=== PATIENT | female | born 1985 | race Caucasian/White ===

== ENCOUNTER 2020-01-08 12:19 | Outpatient (CLI) | payer OTHER, SELFPAY ==
[2020-01-08 14:16] LABS: Vitamin D 25 Hydroxy 40.2 ng/mL
== END 2020-01-08 12:20 | disposition home or self-care (01) ==
PROVIDERS: PCP Family Medicine; Visit Provider Nurse Practitioner
DX: E55.9 Vitamin D deficiency, unspecified (principal)
CPT/HCPCS: 36415; 82306

== ENCOUNTER 2020-10-07 08:46 | Outpatient (CLI) | payer OTHER, SELFPAY ==
[2020-10-07 08:59] LABS: Basophils Absolute Auto 0.03 K/mm3 (0.00-0.10); Basophils Percent Auto 0.5 % (0.0-1.0); Eosinophils Absolute Auto 0.08 K/mm3 (0.02-0.50); Eosinophils Percent Auto 1.2 % (1.0-6.0); Hematocrit 43.8 % (35.0-49.0); Hemoglobin 14.5 g/dL (12.0-15.0); Immature Granulocyte Absolute 0.02 K/mm3 (0.00-0.00); Immature Granulocyte Percent A 0.3 % (0.0-0.0); Lymphocytes Absolute Auto 2.27 K/mm3 (1.10-4.50); Lymphocytes Percent Auto 34.6 % (18.0-42.0); Mean Corpuscular HGB Conc 33.1 g/dL (32.0-36.0); Mean Corpuscular Hemoglobin 28.7 pg (27.0-31.0); Mean Corpuscular Volume 86.7 fL (78.0-102.0); Mean Platelet Volume 10.6 fl (9.2-11.8); Monocytes Absolute Auto 0.51 K/mm3 (0.10-0.90); Monocytes Percent Auto 7.8 % (2.0-11.0); Neutrophils Absolute Auto 3.7 K/mm3 (1.7-7.2); Neutrophils Percent Auto 55.6 % (50.0-70.0); Platelet Count Result 290 K/mm3 (150-420); Red Blood Count 5.05 M/mm3 (4.20-5.40); Red Cell Distribution Width 12.3 % (11.6-14.4); White Blood Count 6.6 K/mm3 (4.8-10.8)
[2020-10-07 09:18] LABS: Hemoglobin A1C 5.1 % (<5.7)
[2020-10-07 10:25] LABS: Alanine Aminotransferase 13 U/L (14-59); Albumin Level 3.8 g/dL (3.4-5.0); Alkaline Phosphatase 64 U/L (46-116); Anion Gap 11 mmol/L (8-16); Aspartate Amino Transferase 22 U/L (15-37); Bilirubin,Total 0.6 mg/dL (0.00-1.00); Blood Urea Nitrogen 15 mg/dL (7-18); Calcium 8.2 mg/dL (8.5-10.1); Carbon Dioxide 26 mmol/L (21-32); Chloride 103 mmol/L (98-108); Cholesterol 191 mg/dL (0-200); Estimated Glomerular Filt Rate > 60; Free T4 Free Thyroxine 0.92 ng/dL (0.76-1.46); Glucose 90 mg/dL (70-99); HDL Direct 41 mg/dL (40-60); LDL Cholesterol Calculated 124 mg/dL (<130); Osmolality Calculated 290 mOsm/kg (285-295); Potassium 4.1 mmol/L (3.5-5.1); Sodium 140 mmol/L (136-145); Thyroid Stimulating Hormone 2.26 uIU/mL (0.36-3.74); Triglycerides 128 mg/dL (0-150); Vitamin B12 373 pg/mL (193-986)
[2020-10-09 21:24] LABS: Vitamin D 25 Hydroxy 17 ng/mL (30-100)
== END 2020-10-07 08:47 | disposition home or self-care (01) ==
PROVIDERS: PCP Family Medicine; Visit Provider Nurse Practitioner
DX: Z13.89 Encounter for screening for other disorder (principal); Z00.00 Encounter for general adult medical examination without abnormal findings; E55.9 Vitamin D deficiency, unspecified
CPT/HCPCS: 36415; 80053; 80061; 82306; 82607; 83036; 84439; 84443; 85025

== ENCOUNTER 2021-06-12 11:59 | Emergency (ER) | payer OTHER, SELFPAY ==
[2021-06-12 12:05] VITALS: BP 135/85; PULSE 86; RESP 16; TEMP 36.8; O2SAT 100
--- NOTE | 2021-06-12 12:06 | ED.SKABFB ---
HPI - Skin/Abscess/Foreign Bdy General Chief complaint: Skin/Abscess/Foreign Body Stated complaint: scratch on nose Time Seen by Provider: 06/12/21 12:06 Source: patient, RN notes reviewed and old records reviewed Mode of arrival: ambulatory History of Present Illness HPI narrative: 35-year-old female presents to the [facility] with a scratch to her right nostril since yesterday. Has redness and inflammation along with a swollen lymph node to the right side. Related Data Home Medications Medication Instructions Recorded Confirmed cholecalciferol (vitamin D3) 1,250 1,250 mcg PO WEEKLY 12/13/19 06/12/21 mcg (50,000 unit) tablet multivitamin [Daily Multivitamin] 1 tablet PO DAILY 06/12/21 06/12/21 Allergies Allergy/AdvReac Type Severity Reaction Status Date / Time azithromycin Allergy Unknown hives Verified 06/12/21 12:05 cephalexin Allergy Unknown Skin Verified 06/12/21 12:05 Reaction levofloxacin Allergy Unknown arm turned Verified 06/12/21 12:05 red CEPHALEXIN MONOHYDRATE Allergy Unknown HIVES Uncoded 06/12/21 12:05 Review of Systems Review of Systems: All systems reviewed & are unremarkable except as noted in HPI and below Constitutional: Constitutional: Reports no additional constitutional complaints, Denies chills and Denies fever(s) Eyes: Eyes: Reports no additional eye complaints and Denies change in vision ENT: Reports as per HPI Comments: Redness right septal wall right nostril Cardiovascular: Cardiovascular: Reports no additional cardiovascular complaints, Denies chest pain and Denies radiating jaw, neck or arm pain Respiratory: Respiratory: Reports no additional respiratory complaints, Denies chest congestion, Denies cough, Denies dyspnea and Denies wheezing Gastrointestinal: Gastrointestinal: Reports no additional gastrointestinal complaints, Denies abdominal pain, Denies constipation, Denies diarrhea, Denies nausea and Denies vomiting Musculoskeletal: Musculoskeletal: Reports no additional musculoskeletal complaints and Denies back pain Neurologic: Reports system reviewed and no additional complaints, except as documented Psychiatric: Psychiatric: Reports no additional psychiatric complaints Allergic/Immunologic: Allergic/Immunologic: Reports no additional allergic/immunologic complaints PMFSH Social History Social History Smoking status: Never smoker Comments At the time of my signature, I reviewed and agree with the nursing past medical, surgical, social, and family history. There is no relevant family history pertinent to the patient complaint. Exam Const: General: healthy appearing, no acute distress and alert Nutritional Appearance: well nourished and obese Orientation/consciousness: patient oriented x3 Limitations: no limitations HENMT: Head: normal to inspection General nose exam: Abnormal nasal septum present other (Redness, inflammation, ); not deviated, no septal hematoma and not perforated, no nasal discharge noted and no foreign body in nares Face and sinus: normal facial exam Mouth: Yes Normal oral and palatal mucosa present and Yes lip normal Throat: posterior oropharynx normal and uvula midline Eyes: Pupils: Equal, round and reactive pupils present Neck: Neck: normal visual inspection and lymphadenopathy right submandibular soft and tender; not warm Chest: Chest palpation & inspection: normal inspection of the chest Resp: Effort & Inspection: normal respiratory effort Auscultation: clear to auscultation bilaterally Cardio: Rate: regular rate Rhythm: regular rhythm GI: GI Palp: Yes Soft to palpation and No Tenderness to palpation present (GI) Back/Spine/Pelvis: Back: no CVA tenderness Skin: General skin exam: normal color Rashes: no rashes Wounds: no wounds Neuro: General: patient oriented x3, moves all extremities, no meningeal signs and no focal motor deficits Speech: normal speech Gait exam (Neuro):
[2021-06-12 12:09] VITALS: BP 135/85; PULSE 86; RESP 16; TEMP 36.8; O2SAT 100
== END 2021-06-12 12:20 | disposition home or self-care (01) ==
PROVIDERS: Emergency Provider Nurse Practitioner; PCP Family Medicine
DX: S00.31XA Abrasion of nose, initial encounter (principal); X58.XXXA Exposure to other specified factors, initial encounter
CPT/HCPCS: 99213; G0463

== ENCOUNTER 2021-08-26 08:27 | Emergency (ER) | payer OTHER, SELFPAY ==
[2021-08-26] VITALS (19 sets, daily range): BP systolic 105–138; BP diastolic 80–93; PULSE 60–118; RESP 14–24; TEMP 36.7; O2SAT 95–98
--- NOTE | ~2021-08-26 | XR_ITS ---
XR chest 2V DATE: 08/26/2021 08:56 INDICATION: Left-sided chest pain since last night. TECHNIQUE: PA and lateral views COMPARISON: 04/09/2011 portable AP chest at 0830 hours FINDINGS: Normal heart size. No hilar or mediastinal enlargement. No pulmonary infiltrate or consolid ation, pleural effusion or pulmonary vascular congestion or pneumothorax. Status post cholecystectomy IMPRESSION: No active cardiopulmonary disease Reviewed, dictated and finalized at location A. ET INSPECTOR FINISHED
--- NOTE | 2021-08-26 08:47 | ECG_ITS ---
Measurements Intervals [place] Rate: 83 P: 23 CO: 167 QRS: 7 QRSD: 93 T: 9 QT: 369 QTc: 435 Interpretive Statements SINUS RHYTHM DELAYED PRECORDIAL R/S TRANSITION CONSIDER INFERIOR INFARCT, AGE INDETERMINATE BORDERLINE ST ABNORMALITY- HIGH LATERAL LEADS ABNORMAL ECG Electronically Signed On 08-26-2021 9:17:32 DONOR SERVICES TECHNICIAN by Tommy Sullivan D.O.
[2021-08-26 08:55] LABS: Basophils Percent Auto 0.4 % (0.2-1.2); Eosinophils Absolute Auto 0.1 K/mm3 (0-0.3); Eosinophils Percent Auto 0.9 % (0-4.4); Hematocrit 42.9 % (37.0-47.0); Hemoglobin 14.7 g/dL (12.0-15.0); Immature Granulocyte Absolute 0.01 K/mm3 (0.00-0.031); Immature Granulocyte Percent A 0.2 % (0-0.5); Lymphocytes Absolute Auto 1.49 K/mm3 (0.9-3.2); Lymphocytes Percent Auto 28.1 % (18.3-44.2); Mean Corpuscular HGB Conc 34.3 g/dl (32-36); Mean Corpuscular Hemoglobin 29.4 pg (26-34); Mean Corpuscular Volume 85.8 fl (80-100); Mean Platelet Volume 10.3 fl (7.4-10.4); Monocytes Absolute Auto 0.4 K/mm3 (0.1-0.6); Monocytes Percent Auto 7.7 % (2.6-8.5); Neutrophils Absolute Auto 3.3 K/mm3 (1.3-6.7); Neutrophils Percent Auto 62.7 % (45.5-73.1); Platelet Count Result 307 k/mm3 (150-375); Red Cell Distribution Width 12.9 % (11.5-14.5); White Blood Count 5.3 K/mm3 (4.5-10.0)
[2021-08-26 09:04] LABS: INR 0.9; Partial Thromboplastin Time 26.9 SECONDS (22.3-36.8); Prothrombin Time 12.5 Seconds (11.1-14.7)
[2021-08-26 09:10] LABS: Alanine Aminotransferase 51 U/L (4-35); Albumin Level 4.5 g/dL (3.5-5.1); Alkaline Phosphatase 67 U/L (38-126); Anion Gap 12 mmol/L (8-16); Aspartate Amino Transferase 48 U/L (14-36); Bilirubin,Total 0.8 mg/dL (0.2-1.3); Blood Urea Nitrogen 12 mg/dL (7-17); Calcium 9.5 mg/dL (8.4-10.2); Carbon Dioxide 23 mmol/L (22-30); Chloride 102 mmol/L (98-107); Estimated CRCL calculation 79 ml/min; Estimated Glomerular Filt Rate > 60; Glucose 109 mg/dL (65-110); Lipase 67 U/L (23-300); Potassium 3.8 mmol/L (3.4-5.0); Sodium 137 mmol/L (137-145)
[2021-08-26 09:21] LABS: Troponin I < 0.012 ng/mL (0.000-0.034)
--- NOTE | 2021-08-26 10:06 | ED.CHESTPAIN ---
HPI - Chest Pain General Chief Complaint: Chest Pain Stated Complaint: chest pain Time Seen by Provider: 08/26/21 09:44 Source: patient Mode of arrival: ambulatory Limitations: no limitations History of Present Illness HPI narrative: Patient is a 35-year-old female presenting with chief complaint of left midsternal chest pain that began at 2100 last night. Patient reports it is an alternation and achy pain sharp pains that are intermittent. Patient denies any exacerbation or alleviating factors. Patient denies any dizziness, syncope, palpitations, shortness of breath, nausea or vomiting accompanying the discomfort. Patient denies history of MN or other cardiac abnormalities. Patient reports that she has a history of GERD and originally attributed her symptoms to eat but despite taking Tums and Pepcid her symptoms continue to return. 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 Patient reports recently beginning Prozac for anxiety. Patient reports that her anxiety does not typically present as chest pain, no more continuous racing thoughts. Patient denies having a history of hypertension, diabetes or any other chronic medical conditions besides anxiety. Patient denies intermediate family member with heart attack. Patient reports that her father did have a CABG performed in his 60s. She denies chance of due to presently active menstrual cycle. Related Data Home Medications Medication Instructions Recorded Confirmed cholecalciferol (vitamin D3) 1,250 1,250 mcg PO WEEKLY 12/13/19 08/22/21 mcg (50,000 unit) tablet multivitamin [Daily Multivitamin] 1 tablet PO DAILY 06/12/21 08/22/21 Allergies Allergy/AdvReac Type Severity Reaction Status Date / Time azithromycin Allergy Unknown hives Verified 08/22/21 09:52 cephalexin Allergy Unknown Skin Verified 08/22/21 09:52 Reaction levofloxacin Allergy Unknown arm turned Verified 08/22/21 09:52 red CEPHALEXIN MONOHYDRATE Allergy Unknown HIVES Uncoded 08/22/21 09:52 Review of Systems Review of Systems: CONSTITUTIONAL: Denies fever, chills, or sweats. EYES: Denies visual changes, redness, or discharge. ENT: Denies rhinorrhea, congestion, sore throat, or otalgia. CARDIOVASCULAR: Reports intermittent denies chest pain, palpitations, or edema. RESPIRATORY: Denies cough or dyspnea. GASTROINTESTINAL: Denies abdominal pain, nausea, vomiting, or diarrhea. GENITOURINARY: Denies dysuria or hematuria. SKIN: Denies rash or itching. MUSCULOSKELETAL: Denies back pain, joint pain, or myalgia. NEUROLOGIC: Denies headache, numbness, dizziness, or weakness. PSYCHIATRIC: Denies anxiety or depression. Exam Narrative: GENERAL: Well-appearing, well-nourished, and in no acute distress. Not diaphoretic. HEAD: Normocephalic, atraumatic. EYES: PERRLA and EOMI. CHEST: Chest pain that represented with chest wall palpation. Clear to auscultation. No respiratory distress. No wheezes rales or rhonchi. No outward signs of trauma. HEART: Regular rate and rhythm. No murmur heard. Normal peripheral pulses. EXTREMITIES: Normal range of motion. No edema. SKIN: Warm, dry, no rash. NEURO: No focal deficits. Alert and oriented x3. PSYCH: Normal mood and affect. Course Vital Signs Vital signs: Vital Signs Temperature 98.0 F 08/26/21 08:32 Pulse Rate 118 H 08/26/21 08:32 Respiratory Rate 18 08/26/21 08:32 Blood Pressure 138/92 H 08/26/21 08:32 Pulse Oximetry 98 08/26/21 08:32 Temperature 98.0 F 08/26/21 08:32 Pulse Rate 60 08/26/21 12:31 Respiratory Rate 17 08/26/21 12:31 Blood Pressure 134/85 08/26/21 10:31 Pulse Oximetry 98 08/26/21 11:16 MDM - Chest Pain MDM Narrative Medical decision making narrative: Patient discharge delay due to multiple lab issues running troponin on blood samples requiring redraws, Patient has had 2 negative
[2021-08-26] MEDS: ASPIRIN 81 MG CHEWABLE TABLET 324 MG PO (10:17)
--- NOTE | 2021-08-26 10:23 | PC.NURSE ---
one 81mg aspirin dropped on the floor. wasted and retrieved another out of pyxis
--- NOTE | 2021-08-26 14:22 | ECG_ITS ---
Measurements Intervals [place] Rate: 62 P: 21 IA: 178 QRS: 9 QRSD: 95 T: 14 QT: 400 QTc: 407 Interpretive Statements SINUS RHYTHM BASELINE ARTIFACT- II, III, AVF NORMAL ECG Electronically Signed On 08-26-2021 18:13:34 MDS COORDINATOR by Tommy Sullivan D.O.
[2021-08-26 15:26] LABS: Troponin I < 0.012 ng/mL (0.000-0.034)
== END 2021-08-26 15:44 | disposition home or self-care (01) ==
PROVIDERS: Emergency Provider Emergency Medicine; PCP Family Medicine
DX: R07.2 Precordial pain (principal); F41.9 Anxiety disorder, unspecified; K21.9 Gastro-esophageal reflux disease without esophagitis; R94.31 Abnormal electrocardiogram [ECG] [EKG]
CPT/HCPCS: 36415; 71046; 80053; 83690; 84484; 85025; 85610; 85730; 93005; 99284; A9270

== ENCOUNTER 2021-11-25 07:09 | Outpatient (CLI) | payer OTHER, SELFPAY ==
[2021-11-25 08:39] LABS: Basophils Percent Auto 0.4 % (0.2-1.2); Eosinophils Absolute Auto 0.1 K/mm3 (0-0.3); Eosinophils Percent Auto 1.6 % (0-4.4); Hemoglobin 14.6 g/dL (12.0-15.0); Immature Granulocyte Absolute 0.01 K/mm3 (0.00-0.031); Immature Granulocyte Percent A 0.1 % (0-0.5); Lymphocytes Absolute Auto 2.33 K/mm3 (0.9-3.2); Lymphocytes Percent Auto 34.3 % (18.3-44.2); Mean Corpuscular Hemoglobin 29.6 pg (26-34); Mean Corpuscular Volume 87.2 fl (80-100); Mean Platelet Volume 10.6 fl (7.4-10.4); Monocytes Absolute Auto 0.5 K/mm3 (0.1-0.6); Monocytes Percent Auto 6.8 % (2.6-8.5); Neutrophils Absolute Auto 3.9 K/mm3 (1.3-6.7); Neutrophils Percent Auto 56.8 % (45.5-73.1); Platelet Count Result 323 k/mm3 (150-375); Red Blood Count 4.93 M/mm3 (4.2-5.4); Red Cell Distribution Width 12.6 % (11.5-14.5); White Blood Count 6.8 K/mm3 (4.5-10.0)
[2021-11-25 09:19] LABS: Vitamin D 25 Hydroxy 35.7 ng/mL
[2021-11-25 09:42] LABS: Alanine Aminotransferase 27 U/L (4-35); Albumin Level 4.3 g/dL (3.5-5.1); Alkaline Phosphatase 71 U/L (38-126); Anion Gap 10 mmol/L (8-16); Aspartate Amino Transferase 24 U/L (14-36); Bilirubin,Total 0.5 mg/dL (0.2-1.3); Blood Urea Nitrogen 13 mg/dL (7-17); Calcium 8.2 mg/dL (8.4-10.2); Carbon Dioxide 23 mmol/L (22-30); Chloride 105 mmol/L (98-107); Cholesterol 204 mg/dL (0-200); Estimated Glomerular Filt Rate > 60; Glucose 93 mg/dL (65-110); HDL Direct 41 mg/dL; Potassium 3.6 mmol/L (3.4-5.0); Sodium 138 mmol/L (137-145); Triglycerides 176 mg/dL (<150)
[2021-11-25 09:54] LABS: LDL Cholesterol Direct 126 mg/dL
[2021-11-25 10:48] LABS: Folic Acid > 20.0 ng/mL (2.76->20)
== END 2021-11-25 07:10 | disposition home or self-care (01) ==
PROVIDERS: PCP Family Medicine; Visit Provider Physician Assistant
DX: E55.9 Vitamin D deficiency, unspecified (principal); E53.8 Deficiency of other specified B group vitamins; Z51.81 Encounter for therapeutic drug level monitoring; Z79.899 Other long term (current) drug therapy
CPT/HCPCS: 36415; 80053; 80061; 82306; 82607; 82746; 84443; 85025

== ENCOUNTER 2022-03-30 13:50 | Outpatient (CLI) | payer OTHER, SELFPAY | END 2022-03-30 13:51 | disposition home or self-care (01) | LOC: CHSLAB 13:54 | PROVIDERS: PCP Physician Assistant; Visit Provider Obstetrics & Gynecology Gynecology | DX: O26.21 Pregnancy care for patient with recurrent pregnancy loss, first trimester (principal) | CPT/HCPCS: 36415; 84702 ==

== ENCOUNTER 2022-04-01 13:48 | Outpatient (CLI) | payer OTHER, SELFPAY | END 2022-04-01 13:49 | disposition home or self-care (01) | PROVIDERS: PCP Physician Assistant; Visit Provider Obstetrics & Gynecology Gynecology | DX: O26.21 Pregnancy care for patient with recurrent pregnancy loss, first trimester (principal) | CPT/HCPCS: 36415; 84702 ==

== ENCOUNTER 2022-04-07 08:00 | Outpatient (CLI) | payer OTHER, SELFPAY ==
--- NOTE | ~2022-04-07 | US_ITS ---
EXAMINATION: US OB <=14 wk fetus w TV DATE: 04/07/2022 09:41 INDICATION: Assess viability of during first trimester TECHNIQUE: Real-time pelvic ultrasound utilizing both a transvaginal and transabdominal probe was pe rformed. The interpreting radiologist was not present for the study. COMPARISON: None. FINDINGS: The uterus measures 8.2 x 6.9 x 5.1 cm. There is an intrauterine gestational sac.A yolk sac is ident ified but there is no discernible pole. The mean sac diameter measures 9 mm, which correlates w ith an estimated gestational age of 5 weeks and 5 days. The right ovary measures 2.8 x 1.6 x 2.8 cm. The left ovary measures 3.6 x 2.7 x 2.0 cm. On color Dop pler vascular flow is seen around a 1.2 cm centrally anechoic thick-walled corpus luteum cyst in the left ovary. There is no free fluid in the pelvis. IMPRESSION: 1. Single intrauterine gestational sac with yolk sac but no discernible pole yet evident likely due to early stage of . 2. Gestational age by ultrasound of 5 weeks 5 day(s) +/- 4 day(s) with ultrasound estimated date of delivery (REGAN) of 12/03/2022. Reviewed, dictated and finalized at location A. IMPRESSION: 1. Single intrauterine gestational sac with yolk sac but no discernible p ole yet evident likely due to early stage of . 2. Gestational age by ultrasound of 5 weeks 5 day(s) +/- 4 day(s) with ultraso und estimated date of delivery (REGAN) of 12/03/2022.
== END 2022-04-07 08:01 | disposition home or self-care (01) ==
PROVIDERS: PCP Physician Assistant; Visit Provider Obstetrics & Gynecology Gynecology
DX: O36.80X0 Pregnancy with inconclusive fetal viability, not applicable or unspecified (principal); Z3A.01 Less than 8 weeks gestation of pregnancy
CPT/HCPCS: 76801; 76817

== ENCOUNTER 2022-04-16 12:41 | Outpatient (CLI) | payer OTHER, SELFPAY ==
--- NOTE | ~2022-04-16 | US_ITS ---
EXAMINATION: US OB <= 14 weeks fetus DATE: 04/16/2022 13:41 INDICATION: Assess viability during first trimester . TECHNIQUE: Real-time pelvic ultrasound utilizing both a transvaginal and transabdominal probe was pe rformed. The interpreting radiologist was not present for the study. COMPARISON: 04/07/2022 FINDINGS: The uterus measures 10.0 x 5.6 x 6.6 cm. There is an intrauterine gestational sac. A yolk sac and fe danni pole are identified. The crown rump length measures 8 mm, which correlates with an estimated gest ational age of 6 weeks and 5 days. heart motion is identified measuring 139 beats per minute (b pm) by M-mode Doppler. The right ovary measures 2.4 x 1.6 x 2.6 cm. The left ovary measures 2.9 x 2.3 x 2.1 cm. 10 mm anecho ic likely corpus luteum cyst in the left ovary. Vascular flow identified in both ovaries on color Dop pler. There is no free fluid in the pelvis. IMPRESSION: 1. Single living fetus with heart rate of 139 bpm. 2. Gestational age by ultrasound of 6 weeks 5 day(s) +/- 4 day(s) with ultrasound estimated date of delivery (REGAN) of 12/05/2022. Reviewed, dictated and finalized at location A. IMPRESSION: 1. Single living fetus with heart rate of 139 bpm. 2. Gestational age by ultrasound of 6 weeks 5 day(s) +/- 4 day(s) with ultraso und estimated date of delivery (REGAN) of 12/05/2022.
== END 2022-04-16 12:42 | disposition home or self-care (01) ==
LOC: ANHIMG 12:43
PROVIDERS: PCP Physician Assistant; Visit Provider Obstetrics & Gynecology Gynecology
DX: O36.80X0 Pregnancy with inconclusive fetal viability, not applicable or unspecified (principal); Z3A.01 Less than 8 weeks gestation of pregnancy
CPT/HCPCS: 76801

== ENCOUNTER 2022-05-07 12:41 | Outpatient (CLI) | payer OTHER, SELFPAY ==
[2022-05-07 13:09] LABS: Hematocrit 41.4 % (37.0-47.0); Hemoglobin 13.8 g/dL (12.0-15.0); Mean Corpuscular HGB Conc 33.3 g/dl (32-36); Mean Corpuscular Hemoglobin 28.8 pg (26-34); Mean Corpuscular Volume 86.4 fl (80-100); Mean Platelet Volume 10.4 fl (7.4-10.4); Platelet Count Result 325 k/mm3 (150-375); Red Blood Count 4.79 M/mm3 (4.2-5.4); Red Cell Distribution Width 13.1 % (11.5-14.5); White Blood Count 9.7 K/mm3 (4.5-10.0)
[2022-05-07 13:18] LABS: Alanine Aminotransferase 33 U/L (6-35); Albumin Level 4.4 g/dL (3.5-5.1); Alkaline Phosphatase 53 U/L (38-126); Anion Gap 13 mmol/L (8-16); Aspartate Amino Transferase 23 U/L (14-36); Bilirubin,Total 0.4 mg/dL (0.2-1.3); Blood Urea Nitrogen 11 mg/dL (7-17); Calcium 8.8 mg/dL (8.4-10.2); Carbon Dioxide 22 mmol/L (22-30); Chloride 102 mmol/L (98-107); Estimated Glomerular Filt Rate > 60; Glucose 76 mg/dL (65-110); Potassium 3.6 mmol/L (3.4-5.0); Sodium 137 mmol/L (137-145); Uric Acid 3.5 mg/dL (2.5-7.5)
== END 2022-05-07 12:42 | disposition home or self-care (01) ==
LOC: ANHLAB 12:42
PROVIDERS: PCP Physician Assistant; Visit Provider Obstetrics & Gynecology Gynecology
DX: Z86.32 Personal history of gestational diabetes (principal)
CPT/HCPCS: 36415; 80053; 84550; 85027

== ENCOUNTER 2022-05-08 15:03 | Outpatient (CLI) | payer OTHER, SELFPAY ==
[2022-05-08 15:40] LABS: Collection Time Urine 24 HOURS
[2022-05-08 15:45] LABS: Total Volume 24 Hour Urine 1600 ml
[2022-05-08 15:50] LABS: Creatinine Clearance Urine 165.3 ml/min (75-125); Creatinine Urine 89.6 mg/dL; Patient Weight 170 Lbs
[2022-05-08 16:23] LABS: Total Protein Urine 24 Hr < 80 mg/24hr (28-141); Total Protein Urine Random < 5 mg/dL
== END 2022-05-08 15:04 | disposition home or self-care (01) ==
PROVIDERS: PCP Physician Assistant; Visit Provider Obstetrics & Gynecology Gynecology
DX: Z86.32 Personal history of gestational diabetes (principal)
CPT/HCPCS: 81050; 82575; 84156

== ENCOUNTER 2022-05-25 12:17 | Emergency (ER) | payer OTHER, SELFPAY ==
[2022-05-25 12:33] VITALS: BP 128/77; PULSE 108; RESP 20; TEMP 37.2; O2SAT 96
[2022-05-25 13:12] LABS: Basophils Absolute Auto 0.01 K/mm3 (0.00-0.10); Basophils Percent Auto 0.1 % (0.0-1.0); Hematocrit 36.9 % (35.0-49.0); Hemoglobin 12.4 g/dL (12.0-15.0); Immature Granulocyte Absolute 0.04 K/mm3 (0.00-0.00); Immature Granulocyte Percent A 0.4 % (0.0-0.0); Lymphocytes Absolute Auto 0.57 K/mm3 (1.10-4.50); Lymphocytes Percent Auto 5.9 % (18.0-42.0); Mean Corpuscular HGB Conc 33.6 g/dL (32.0-36.0); Mean Corpuscular Hemoglobin 29.1 pg (27.0-31.0); Mean Corpuscular Volume 86.6 fL (78.0-102.0); Monocytes Absolute Auto 0.55 K/mm3 (0.10-0.90); Monocytes Percent Auto 5.7 % (2.0-11.0); Neutrophils Absolute Auto 8.5 K/mm3 (1.7-7.2); Neutrophils Percent Auto 87.9 % (50.0-70.0); Platelet Count Result 262 K/mm3 (150-420); Red Blood Count 4.26 M/mm3 (4.20-5.40); Red Cell Distribution Width 13.1 % (11.6-14.4); White Blood Count 9.7 K/mm3 (4.8-10.8)
[2022-05-25] MEDS: SODIUM CHLORIDE 0.9% IV 1,000 ML 999 ML IV CONT (13:14)
[2022-05-25] MEDS: ACETAMINOPHEN 325 MG TABLET 650 MG PO (13:14)
--- NOTE | 2022-05-25 13:18 | PC.NURSE ---
Pt aware of UA order, but states that she does not need to go to the bathroom at this time. Pt will notify staff when she is able to provide a urine sample.
[2022-05-25] MEDS: ONDANSETRON INJ 4 MG/2 ML VIAL IV PUSH (13:26)
[2022-05-25 13:27] LABS: Alanine Aminotransferase 36 U/L (14-59); Alkaline Phosphatase 64 U/L (46-116); Anion Gap 9 mmol/L (8-16); Aspartate Amino Transferase 15 U/L (15-37); Bilirubin,Total 0.4 mg/dL (0.00-1.00); Blood Urea Nitrogen 4 mg/dL (7-18); Calcium 8.2 mg/dL (8.5-10.1); Carbon Dioxide 27 mmol/L (21-32); Chloride 97 mmol/L (98-108); Estimated CRCL calculation 104 ml/min; Estimated Glomerular Filt Rate > 60; Glucose 118 mg/dL (70-99); Osmolality Calculated 273 mOsm/kg (285-295); Potassium 3.1 mmol/L (3.5-5.1); Sodium 133 mmol/L (136-145); Total Protein 7.2 g/dL (6.4-8.2)
[2022-05-25 14:18] LABS: Appearance Urine Clear (Clear); Bilirubin Urine Negative (Negative); Color Urine Yellow (Yellow); Glucose Urine UA Negative (Negative); Ketones Urine 1+ (Negative); Leukocyte Esterase Ur Negative (Negative); Nitrate Urine Negative (Negative); Protein Urine Trace (Negative); Specific Grav Ur >= 1.030 (1.010-1.020)
[2022-05-25 14:23] LABS: Add Urine Microscopic? YES; Blood Urine Trace-Intact (Negative); RBC Urine 0-2 /hpf (0-2); Squamous Epithelial Cell Urine Few /hpf (Few); WBC Urine 0-3 /hpf (0-3)
[2022-05-25 14:24] LABS: Bacteria Urine Trace /hpf; Mucus Urine Moderate /lpf
[2022-05-25 14:50] VITALS: PULSE 87; RESP 16; O2SAT 96
--- NOTE | 2022-05-25 15:08 | ED.GENADULT ---
HPI - General Adult General Chief complaint: Unspecified Stated complaint: HIGH HEART RATE DEHYDRATED Time Seen by Provider: 05/25/22 12:21 Source: patient, family and RN notes reviewed Mode of arrival: ambulatory Limitations: no limitations History of Present Illness Onset (ago): day(s) (2) Location: abdomen Radiation: non-radiation Severity: similar to prior episodes (no acute pain) Pain Consistency: other (none) Relieving factors: none Exacerbating factors: none Associated symptoms: loss of appetite and nausea/vomiting Treatments prior to arrival: none Related Data Home Medications Medication Instructions Recorded Confirmed [place] 1 tablet 05/25/22 aspirin 81 mg DAILY 05/25/22 05/25/22 insulin syringe-needle U-100 0.3 05/25/22 05/25/22 mL 31 gauge x 12/22 prenat.vits,yashira,[id number] 1 tablet PO DAILY 05/25/22 05/25/22 Allergies Allergy/AdvReac Type Severity Reaction Status Date / Time azithromycin Allergy Unknown hives Verified 05/25/22 12:39 cephalexin Allergy Unknown Skin Verified 05/25/22 12:39 Reaction levofloxacin Allergy Unknown arm turned Verified 05/25/22 12:39 red Review of Systems Review of Systems: All systems reviewed & are unremarkable except as noted in HPI and below Constitutional: Constitutional: Reports no additional constitutional complaints Eyes: Eyes: Reports no additional eye complaints ENT: Reports system reviewed and no additional complaints, except as documented Cardiovascular: Cardiovascular: Reports no additional cardiovascular complaints Respiratory: Respiratory: Reports no additional respiratory complaints Gastrointestinal: Gastrointestinal: Reports no additional gastrointestinal complaints, Reports nausea and Reports vomiting Genitourinary: Genitourinary: Reports no additional female genitourinary complaints Musculoskeletal: Musculoskeletal: Reports no additional musculoskeletal complaints Integumentary/Breasts: Skin/Breast: Reports system reviewed and no additional complaints, except as docu Neurologic: Reports system reviewed and no additional complaints, except as documented Psychiatric: Psychiatric: Reports no additional psychiatric complaints Endocrine: Endocrine: Reports no additional endocrine complaints Hematologic/Lymphatic: Hematologic/Lymphatic: Reports no additional hematologic/lymphatic complaints Allergic/Immunologic: Allergic/Immunologic: Reports no additional allergic/immunologic complaints PMFSH Past Medical History Medical History Vomiting affecting Social History Social History Social History: Caffeine- <200mg daily Smoking status: Never smoker Alcohol intake: former Exam Const: General: healthy appearing, no acute distress and well nourished Nutritional Appearance: well nourished Orientation/consciousness: patient oriented x3 Limitations: no limitations HENMT: Head: normal to inspection Ears: external ears normal, TM's normal bilaterally and EAC's normal Face/Nose/Sinus: Normal external nose present, Normal nares present, normal facial exam and sinuses nontender Face and sinus: normal facial exam and sinuses nontender Mouth: Yes Normal oral and palatal mucosa present and Yes moist mucous membranes Teeth and gingiva: dentition normal Throat: posterior oropharynx normal Eyes: General: appearance normal, both eyes and all related structures Visual Mijares: normal visual mijares by confrontation Conjunctivae: conjunctivae normal Pupils: Equal, round and reactive pupils present EOM: EOMs intact bilaterally Neck: Neck: normal visual inspection, no lymphadenopathy and no meningeal signs Chest: Chest palpation & inspection: normal inspection of the chest Resp: Effort & Inspection: normal respiratory effort Auscultation: clear to auscultation bilaterally Cardio: Rate: regular rate Rhythm: re
[2022-05-25 15:10] VITALS: BP 106/72
[2022-05-25] MEDS: POTASSIUM CHLORIDE 20 MEQ TABLET 40 MEQ PO (15:16)
== END 2022-05-25 15:23 | disposition home or self-care (01) ==
PROVIDERS: Emergency Provider Emergency Medicine; PCP Physician Assistant
DX: K52.9 Noninfective gastroenteritis and colitis, unspecified (principal); Z33.1 Pregnant state, incidental; E87.6 Hypokalemia
CPT/HCPCS: 36415; 80053; 81001; 85025; 96361; 96374; 99284; A9270; J2405; J7030

== ENCOUNTER 2022-06-05 07:28 | Outpatient (CLI) | payer OTHER, SELFPAY ==
[2022-06-05 08:15] LABS: Basophils Percent Auto 0.1 % (0.2-1.2); Eosinophils Absolute Auto 0.1 K/mm3 (0-0.3); Eosinophils Percent Auto 0.7 % (0-4.4); Hematocrit 35.7 % (37.0-47.0); Hemoglobin 11.9 g/dL (12.0-15.0); Immature Granulocyte Absolute 0.04 K/mm3 (0.00-0.031); Immature Granulocyte Percent A 0.5 % (0-0.5); Lymphocytes Absolute Auto 2.18 K/mm3 (0.9-3.2); Lymphocytes Percent Auto 25.1 % (18.3-44.2); Mean Corpuscular HGB Conc 33.3 g/dl (32-36); Mean Corpuscular Hemoglobin 29.1 pg (26-34); Mean Corpuscular Volume 87.3 fl (80-100); Mean Platelet Volume 9.6 fl (7.4-10.4); Monocytes Absolute Auto 0.5 K/mm3 (0.1-0.6); Monocytes Percent Auto 5.3 % (2.6-8.5); Neutrophils Percent Auto 68.3 % (45.5-73.1); Platelet Count Result 356 k/mm3 (150-375); Red Blood Count 4.09 M/mm3 (4.2-5.4); Red Cell Distribution Width 13.2 % (11.5-14.5); White Blood Count 8.7 K/mm3 (4.5-10.0)
[2022-06-05 08:25] LABS: Hemoglobin A1C 5.5 % (<5.7)
[2022-06-05 09:10] LABS: HIV 1/2 Ab P24 Ag Result Negative (Negative)
[2022-06-05 09:46] LABS: Hepatitis B Surface Antigen Negative (Negative); Rubella IgG Antibody 8.1 IU/ML
[2022-06-05 09:47] LABS: Vitamin D 25 Hydroxy 33.4 ng/mL
[2022-06-05 10:02] LABS: Hepatitis C Virus Antibody Negative (Negative)
[2022-06-05 14:49] LABS: Rapid Plasma Reagin Non-Reactive (NonReactive)
== END 2022-06-05 07:29 | disposition home or self-care (01) ==
LOC: ANHLAB 07:30
PROVIDERS: PCP Family Medicine; Visit Provider Obstetrics & Gynecology Gynecology
DX: Z36.9 Encounter for antenatal screening, unspecified (principal)
CPT/HCPCS: 36415; 82306; 82728; 83036; 85025; 86592; 86703; 86762; 86803; 86850; 86900; 86901; 87340; G0432

== ENCOUNTER 2022-06-26 07:30 | Outpatient (CLI) | payer OTHER, SELFPAY ==
[2022-06-30 17:12] LABS: Ionized Calcium 4.7 mg/dL (4.8-5.6)
[2022-07-04 16:57] LABS: Parathyroid Hormone Related Pr 15 pg/mL (11-20)
== END 2022-06-26 07:31 | disposition home or self-care (01) ==
LOC: ANHLAB 07:32
PROVIDERS: PCP Family Medicine; Visit Provider Physician Assistant
DX: E83.51 Hypocalcemia (principal)
CPT/HCPCS: 36415; 82330; 83519

== ENCOUNTER 2022-07-10 07:41 | Outpatient (CLI) | payer OTHER, SELFPAY ==
[2022-07-10 07:55] LABS: Basophils Percent Auto 0.2 % (0.2-1.2); Eosinophils Absolute Auto 0.1 K/mm3 (0-0.3); Eosinophils Percent Auto 0.7 % (0-4.4); Hematocrit 34.7 % (37.0-47.0); Hemoglobin 11.6 g/dL (12.0-15.0); Immature Granulocyte Absolute 0.02 K/mm3 (0.00-0.031); Immature Granulocyte Percent A 0.2 % (0-0.5); Lymphocytes Absolute Auto 2.28 K/mm3 (0.9-3.2); Lymphocytes Percent Auto 26.9 % (18.3-44.2); Mean Corpuscular HGB Conc 33.4 g/dl (32-36); Mean Corpuscular Hemoglobin 28.8 pg (26-34); Mean Corpuscular Volume 86.1 fl (80-100); Mean Platelet Volume 9.8 fl (7.4-10.4); Monocytes Absolute Auto 0.6 K/mm3 (0.1-0.6); Monocytes Percent Auto 7.4 % (2.6-8.5); Neutrophils Absolute Auto 5.5 K/mm3 (1.3-6.7); Neutrophils Percent Auto 64.6 % (45.5-73.1); Platelet Count Result 298 k/mm3 (150-375); Red Blood Count 4.03 M/mm3 (4.2-5.4); White Blood Count 8.5 K/mm3 (4.5-10.0)
[2022-07-10 08:11] LABS: Alanine Aminotransferase 18 U/L (6-35); Albumin Level 3.8 g/dL (3.5-5.1); Alkaline Phosphatase 53 U/L (38-126); Anion Gap 6 mmol/L (8-16); Aspartate Amino Transferase 15 U/L (14-36); Bilirubin,Total 0.3 mg/dL (0.2-1.3); Blood Urea Nitrogen 8 mg/dL (7-17); Calcium 8.4 mg/dL (8.4-10.2); Carbon Dioxide 24 mmol/L (22-30); Chloride 106 mmol/L (98-107); Estimated Glomerular Filt Rate > 60; Glucose 86 mg/dL (65-110); Potassium 3.5 mmol/L (3.4-5.0); Sodium 136 mmol/L (137-145)
== END 2022-07-10 07:42 | disposition home or self-care (01) ==
LOC: ANHLAB 07:42
PROVIDERS: PCP Family Medicine; Visit Provider Physician Assistant
DX: D64.9 Anemia, unspecified (principal); E87.6 Hypokalemia
CPT/HCPCS: 36415; 80053; 85025

== ENCOUNTER 2022-07-29 20:38 | Observation (INO) | payer OTHER, SELFPAY ==
[2022-07-29] VITALS (11 sets, daily range): BP systolic 113–139; BP diastolic 59–73; PULSE 91–103; TEMP 36.6; BMI 42.2
[2022-07-29 21:12] LABS: Add Urine Microscopic? YES; Appearance Urine Clear (Clear); Bilirubin Urine 1+ (Negative); Blood Urine Negative (Negative); Color Urine Yellow (Yellow); Glucose Urine UA Negative (Negative); Ketones Urine 3+ mg/dL (Negative); Leukocyte Esterase Ur Negative LEU/UL (Negative); Nitrate Urine Negative (Negative); Protein Urine Trace mg/dL (Negative); Specific Grav Ur >= 1.030 (1.001-1.035); Urobilinogen Urine 0.2 mg/dL (<2.0); pH Urine 5.5 (5.0-9.0)
[2022-07-29 21:17] LABS: Mucus Urine Few /lpf; RBC Urine 0-2 /hpf (0-2); Squamous Epithelial Cell Urine Many /hpf (Few); WBC Urine 0-3 /hpf
[2022-07-29 21:58] LABS: Glucose Point of Care 90 mg/dl (65-105)
[2022-07-29] MEDS: LACTATED RINGERS 1,000 ML 999 ML IV CONT (22:01)
[2022-07-29] MEDS: DEXTROSE 5%/LACTATED RINGERS 1,000 ML 250 ML IV CONT (23:05)
--- NOTE | 2022-07-29 23:08 | LDADM ---
This patient, Payal Mcrae, was admitted to [facility] on 07/29/22 at 20:38. Plans for labor, pain management and were discussed with patient. Patient/family oriented to hospital policies and general routines including ID bracelet, bed and alarms, visiting hours, pain management, procedures, bathroom and other care routines, personal items, smoking policy, room service/diet and guest tray routines, infant security routines, and visiting hours. Patient/Family are encouraged to report perceived risks to care and to ask questions if they do not understand what they are told or what they should do. See OBIX for further documentation.
[2022-07-29 23:42] LABS: Influenza A QL RT-PCR Negative (Negative); Influenza B QL RT-PCR Negative (Negative)
[2022-07-30] MEDS: ONDANSETRON INJ 4 MG/2 ML VIAL IV PUSH (00:14)
[2022-07-30 01:14] LABS: Glucose Point of Care 149 mg/dl (65-105)
--- NOTE | 2022-07-30 01:42 | PC.NURSE ---
0000 no contractions noted on tracing. 0100 no contractions noted on tracing
--- NOTE | 2022-07-30 01:43 | PC.NURSE ---
0114 CNM called to report patient's blood glucose level and patient's status. Orders to discharge patient home on a bland diet. 0125 RN reminded patient to take her insulin at home during normal time and RN will discharge patient home.
--- NOTE | 2022-07-30 11:00 | PM.OBTRLD ---
OB - Triage/Final Diagnosis Visit Information Date of evaluation: 07/29/22 Reason for evaluation: other (nausea/vomiting) Comments/Additional reasons for admission: I have assessed the risk for this patient, Payal Mcrae, and determined that she would benefit from observation care. Evaluation Laboratory results: Laboratory Tests 07/29/22 07/29/22 07/29/22 21:04 21:48 22:30 POC Capillary Glucose 90 Urine Color Yellow Urine Appearance Clear Urine pH 5.5 Ur Specific [place] >= 1.030 Urine Protein Trace Urine Glucose (UA) Negative Urine Ketones 3+ H Ur Blood (Man) Negative Urine Nitrate Negative Urine Bilirubin 1+ H Urine Urobilinogen 0.2 Leukocyte Esterase Rfl Negative Urine RBC 0-2 Urine WBC 0-3 Ur Squamous Epith Cells Many H Hyaline Casts 1-2 Urine Mucus Few H Influenza A (RT-PCR) Negative Influenza B (RT-PCR) Negative 07/30/22 01:08 POC Capillary Glucose 149 H Urine Color Urine Appearance Urine pH Ur Specific [place] Urine Protein Urine Glucose (UA) Urine Ketones Ur Blood (Man) Urine Nitrate Urine Bilirubin Urine Urobilinogen Leukocyte Esterase Rfl Urine RBC Urine WBC Ur Squamous Epith Cells Hyaline Casts Urine Mucus Influenza A (RT-PCR) Influenza B (RT-PCR) Vital signs: Vital Signs - 24 hr 07/29/22 20:52 07/29/22 21:00 07/29/22 21:15 Temperature Pulse Rate 103 H 100 91 Blood Pressure 139/73 113/69 119/65 07/29/22 21:30 07/29/22 21:45 07/29/22 22:00 Temperature Pulse Rate 99 100 94 Blood Pressure 121/66 121/69 131/68 07/29/22 22:05 07/29/22 22:15 07/29/22 22:30 Temperature 97.9 F Pulse Rate 95 98 Blood Pressure 130/69 130/72 07/29/22 23:00 07/29/22 23:30 Temperature Pulse Rate 95 91 Blood Pressure 119/59 L 121/66
== END 2022-07-30 01:36 | disposition home or self-care (01) ==
PROVIDERS: Obstetrics & Gynecology Gynecology; Admitting Provider Advanced Practice Midwife; PCP Family Medicine; Visit Provider Advanced Practice Midwife
DX: O21.9 Vomiting of pregnancy, unspecified (principal); O24.912 Unspecified diabetes mellitus in pregnancy, second trimester; Z3A.22 22 weeks gestation of pregnancy
CPT/HCPCS: 81001; 82948; 87086; 87088; 87502; 96360; 96361; 96374; 96375; G0378; G0379; J2405; J7120; J7121

== ENCOUNTER 2022-09-07 13:58 | Outpatient (CLI) | payer OTHER, SELFPAY ==
[2022-09-07 14:59] LABS: Hematocrit 37.3 % (37.0-47.0)
[2022-09-07 15:48] LABS: HIV 1/2 Ab P24 Ag Result Negative (Negative)
[2022-09-07 17:10] LABS: Vitamin D 25 Hydroxy 42.5 ng/mL
[2022-09-07 20:12] LABS: Hemoglobin A1C 4.7 % (<5.7)
== END 2022-09-07 13:59 | disposition home or self-care (01) ==
PROVIDERS: PCP Family Medicine; Visit Provider Obstetrics & Gynecology Gynecology
DX: Z34.93 Encounter for supervision of normal pregnancy, unspecified, third trimester (principal); Z3A.00 Weeks of gestation of pregnancy not specified
CPT/HCPCS: 36415; 82306; 83036; 85014; 85018; 86703; G0432

== ENCOUNTER 2022-11-20 15:50 | Emergency (ER) | payer OTHER, SELFPAY ==
--- NOTE | 2022-11-20 15:58 | ED.URI ---
HPI - URI/Sore Throat General Chief Complaint: Upper Respiratory Infection Stated Complaint: SORE THROAT/CONGESTION Time Seen by Provider: 11/20/22 15:58 Source: patient, RN notes reviewed and old records reviewed Mode of arrival: ambulatory Limitations: no limitations History of Present Illness HPI Narrative: 37-year-old female presents to the [facility] with complaints sore throat and congestion since Wednesday, 4 days. Patient is 38 weeks , did see her OB on Wednesday. Patient is concerned for strep. Related Data Home Medications Medication Instructions Recorded Confirmed aspirin 81 mg DAILY 05/25/22 11/20/22 insulin syringe-needle U-100 0.3 05/25/22 11/12/22 mL 31 gauge x 5/16 prenat.vits,yashira,[id number] 1 tablet PO DAILY 05/25/22 11/20/22 cholecalciferol (vitamin D3) 1,250 1,250 mcg PO WEEKLY 11/09/22 11/20/22 mcg (50,000 unit) tablet insulin NPH isoph U-100 human 100 30 unit subcut HS 11/09/22 11/20/22 unit/mL subcutaneous suspension (Humulin N NPH U-100 Insulin (isophane susp)) Allergies Allergy/AdvReac Type Severity Reaction Status Date / Time azithromycin Allergy Unknown hives Verified 11/09/22 14:38 cephalexin Allergy Unknown Skin Verified 11/09/22 14:38 Reaction levofloxacin Allergy Unknown arm turned Verified 11/09/22 14:38 red Review of Systems Review of Systems: All systems reviewed & are unremarkable except as noted in HPI and below Constitutional: Constitutional: Reports no additional constitutional complaints Eyes: Eyes: Reports no additional eye complaints ENT: Reports as per HPI Cardiovascular: Cardiovascular: Reports no additional cardiovascular complaints, Denies chest pain and Denies dyspnea Respiratory: Respiratory: Reports no additional respiratory complaints, Denies chest congestion, Denies cough and Denies dyspnea Gastrointestinal: Gastrointestinal: Reports no additional gastrointestinal complaints, Denies abdominal pain, Denies nausea and Denies vomiting Musculoskeletal: Musculoskeletal: Reports no additional musculoskeletal complaints Integumentary/Breasts: Skin/Breast: Reports system reviewed and no additional complaints, except as docu Neurologic: Reports system reviewed and no additional complaints, except as documented Psychiatric: Psychiatric: Reports no additional psychiatric complaints Allergic/Immunologic: Allergic/Immunologic: Reports no additional allergic/immunologic complaints PMFSH Past Medical History Medical History Vomiting affecting Family History Family History Father Diabetes mellitus Myocardial infarction Hypertension Mother Diabetes mellitus Hypertension Colon cancer Sibling Brain cancer Social History Social History Social History: Caffeine- <200mg daily Smoking status: Never smoker Alcohol intake: former Substance use: never Spiritual care concerns: No Comments At the time of my signature, I reviewed and agree with the nursing past medical, surgical, social, and family history. There is no relevant family history pertinent to the patient complaint. Exam Const: General: cooperative, healthy appearing, comfortable, no acute distress, well developed, alert and well nourished Nutritional Appearance: well nourished Orientation/consciousness: patient oriented x3 Limitations: no limitations HENMT: Head: normal to inspection Ears: hearing grossly normal bilaterally and external ears normal Face/Nose/Sinus: Normal external nose present, Normal nares present, Normal nasal mucous membranes and turbinates present and normal facial exam Face and sinus: normal facial exam Mouth: Yes Normal oral and palatal mucosa present, Yes lip normal and Yes moist mucous membranes Throat: posterior oropharynx normal, uvula midline, postna
[2022-11-20 16:00] VITALS: BP 121/67; PULSE 90; RESP 16; TEMP 36.6; O2SAT 99
== END 2022-11-20 16:16 | disposition home or self-care (01) ==
PROVIDERS: Emergency Provider Nurse Practitioner; PCP Family Medicine
DX: J02.9 Acute pharyngitis, unspecified (principal); Z86.16 Personal history of COVID-19; E11.9 Type 2 diabetes mellitus without complications; Z79.4 Long term (current) use of insulin
CPT/HCPCS: 87081; 87880; 99213; G0463

== ENCOUNTER 2022-11-23 12:50 | Outpatient (RCR) | payer OTHER, SELFPAY ==
[2022-10-06 09:39] VITALS: BP 122/64; PULSE 85
[2022-10-09 08:17] VITALS: BP 115/58; PULSE 82
[2022-10-13 13:20] VITALS: BP 110/60; PULSE 84
[2022-10-16 12:57] VITALS: BP 107/54; PULSE 79
[2022-10-20 13:26] VITALS: BP 106/65; PULSE 80
[2022-10-23 13:28] VITALS: BP 101/50; PULSE 85
[2022-10-27 13:26] VITALS: BP 106/62; PULSE 85
[2022-10-30 13:41] VITALS: BP 109/59; PULSE 81
[2022-11-03 11:25] VITALS: BP 102/58; PULSE 80
[2022-11-06 14:05] VITALS: BP 113/61; PULSE 106
[2022-11-09 14:01] VITALS: BP 107/61; PULSE 89
[2022-11-12 13:33] VITALS: BP 120/59; PULSE 72
[2022-11-16 10:01] VITALS: BP 108/49; PULSE 91
[2022-11-19 08:15] VITALS: BP 132/78; PULSE 84
[2022-11-23 13:46] VITALS: BP 117/66; PULSE 67
== END 2023-01-04 18:28 | disposition home or self-care (01) ==
LOC: ANHOBOP 12:50
PROVIDERS: PCP Family Medicine; Visit Provider Obstetrics & Gynecology Gynecology
DX: O24.419 Gestational diabetes mellitus in pregnancy, unspecified control (principal); Z3A.32 32 weeks gestation of pregnancy; Z3A.34 34 weeks gestation of pregnancy; Z3A.35 35 weeks gestation of pregnancy; Z3A.36 36 weeks gestation of pregnancy; Z3A.37 37 weeks gestation of pregnancy; Z3A.38 38 weeks gestation of pregnancy
CPT/HCPCS: 59025

== ENCOUNTER 2022-11-24 08:54 | Inpatient (IN) | payer OTHER, SELFPAY ==
[2022-11-24] VITALS (68 sets, daily range): BP systolic 80–135; BP diastolic 38–93; PULSE 54–141; RESP 16; TEMP 36.4–37.1; O2SAT 88–100; BMI 43.9
[2022-11-24] MEDS: LACTATED RINGERS 1,000 ML 125 ML IV CONT ×2 (09:10→10:01)
[2022-11-24] MEDS: fentaNYL CITRATE INJ (*CRX) 100 MCG/2 ML VIAL IV PUSH (09:18)
[2022-11-24 09:24] LABS: Glucose Point of Care 100 mg/dl (65-105)
[2022-11-24 09:31] LABS: Basophils Percent Auto 0.2 % (0.2-1.2); Eosinophils Percent Auto 0.2 % (0-4.4); Hematocrit 40.8 % (37.0-47.0); Hemoglobin 13.6 g/dL (12.0-15.0); Immature Granulocyte Absolute 0.03 K/mm3 (0.00-0.031); Immature Granulocyte Percent A 0.3 % (0-0.5); Lymphocytes Absolute Auto 2.02 K/mm3 (0.9-3.2); Lymphocytes Percent Auto 23.3 % (18.3-44.2); Mean Corpuscular HGB Conc 33.3 g/dl (32-36); Mean Corpuscular Hemoglobin 28.3 pg (26-34); Mean Corpuscular Volume 84.8 fl (80-100); Mean Platelet Volume 10.5 fl (7.4-10.4); Monocytes Absolute Auto 0.7 K/mm3 (0.1-0.6); Monocytes Percent Auto 7.5 % (2.6-8.5); Neutrophils Absolute Auto 5.9 K/mm3 (1.3-6.7); Neutrophils Percent Auto 68.5 % (45.5-73.1); Platelet Count Result 302 k/mm3 (150-375); Red Blood Count 4.81 M/mm3 (4.2-5.4); Red Cell Distribution Width 15.9 % (11.5-14.5); White Blood Count 8.7 K/mm3 (4.5-10.0)
[2022-11-24 09:39] LABS: Alanine Aminotransferase 22 U/L (6-35); Albumin Level 3.9 g/dL (3.5-5.1); Alkaline Phosphatase 149 U/L (38-126); Anion Gap 12 mmol/L (8-16); Aspartate Amino Transferase 18 U/L (14-36); Bilirubin,Total 0.6 mg/dL (0.2-1.3); Blood Urea Nitrogen 7 mg/dL (7-17); Calcium 8.8 mg/dL (8.4-10.2); Carbon Dioxide 18 mmol/L (22-30); Chloride 107 mmol/L (98-107); Estimated Glomerular Filt Rate > 60; Glucose 101 mg/dL (65-110); Potassium 3.5 mmol/L (3.4-5.0); Sodium 137 mmol/L (137-145)
--- NOTE | 2022-11-24 10:00 | LDADM ---
This patient, Payal Mcrae, was admitted to Labor/Delivery/Recovery [facility] on 11/24/22 at 08:54. Plans for labor, pain management and were discussed with patient. Patient/family oriented to hospital policies and general routines including ID bracelet, bed and alarms, visiting hours, pain management, procedures, bathroom and other care routines, personal items, smoking policy, room service/diet and guest tray routines, security routines, and visiting hours. Patient/Family are encouraged to report perceived risks to care and to ask questions if they do not understand what they are told or what they should do. See OBIX for further documentation.
--- NOTE | 2022-11-24 10:10 | WPDANESEPPF ---
Anes - Initial Pre Proc Eval Procedure: labor epidural Date/Time: 11/24/22 10:10 Surgeon: Estelita Robin MD Pre Op Diagnosis: labor pain Pre Op Diagnosis: Labor Patient Data Age: 37 Gender: F Height: 1.52 m Weight: 102 kg Last Vital Signs Pulse 69 11/24/22 10:00 BP 112/70 11/24/22 10:00 Pulse Ox 100 11/24/22 10:08 O2 Del Method Room Air 11/24/22 09:59 Allergies Allergy/AdvReac Type Severity Reaction Status Date / Time azithromycin Allergy Unknown hives Verified 11/09/22 14:38 cephalexin Allergy Unknown Skin Verified 11/09/22 14:38 Reaction levofloxacin Allergy Unknown arm turned Verified 11/09/22 14:38 red Home Medications Medication Instructions Recorded Confirmed Type aspirin 81 mg DAILY 05/25/22 11/24/22 History insulin syringe-needle U-100 0.3 05/25/22 11/12/22 History mL 31 gauge x 5/16 prenat.vits,yashira,hjw-sywd-dijjl 1 tablet PO DAILY 05/25/22 11/20/22 History cholecalciferol (vitamin D3) 1,250 1,250 mcg PO WEEKLY 11/09/22 11/24/22 History mcg (50,000 unit) tablet insulin NPH isoph U-100 human 100 30 unit subcut HS 11/09/22 11/20/22 History unit/mL subcutaneous suspension (Humulin N NPH U-100 Insulin (isophane susp)) amoxicillin 875 mg tablet 875 mg PO Q12H #20 tabs 11/23/22 Rx Laboratory Tests 11/24/22 11/24/22 11/24/22 09:09 09:09 09:09 WBC 8.7 K/mm3 K/mm3 (4.5-10.0) RBC 4.81 M/mm3 M/mm3 (4.2-5.4) Hgb 13.6 g/dL g/dL (12.0-15.0) Hct 40.8 % % (37.0-47.0) MCV 84.8 fl fl (80-100) MCH 28.3 pg pg (26-34) MCHC 33.3 g/dl g/dl (32-36) RDW 15.9 % H % (11.5-14.5) Plt Count 302 k/mm3 k/mm3 (150-375) MPV 10.5 fl H fl (7.4-10.4) Immature Gran % (Auto) 0.3 % % (0-0.5) Neut % (Auto) 68.5 % % (45.5-73.1) Lymph % (Auto) 23.3 % % (18.3-44.2) [place] % (Auto) 7.5 % % (2.6-8.5) Eos % (Auto) 0.2 % % (0-4.4) Baso % (Auto) 0.2 % % (0.2-1.2) Lymph # (Auto) 2.02 K/mm3 K/mm3 (0.9-3.2) [place] # (Auto) 0.7 K/mm3 H K/mm3 (0.1-0.6) Eos # (Auto) 0.0 K/mm3 K/mm3 (0-0.3) Baso # (Auto) 0.0 K/mm3 K/mm3 (0.0-0.1) Abs Immat Gran (auto) 0.03 K/mm3 K/mm3 (0.00-0.031) Absolute Neuts (auto) 5.9 K/mm3 K/mm3 (1.3-6.7) Absolute Nucleated RBC 0.0 K/mm3 K/mm3 (0.0-0.012) Nucleated RBC % 0.0 % % (0.0-0.2) Sodium 137 mmol/L mmol/L (137-145) Potassium 3.5 mmol/L mmol/L (3.4-5.0) Chloride 107 mmol/L mmol/L (98-107) Carbon Dioxide 18 mmol/L L mmol/L (22-30) Anion Gap 12 mmol/L mmol/L (8-16) BUN 7 mg/dL mg/dL (7-17) Creatinine 0.40 mg/dL L mg/dL (0.7-1.0) Estim Creat Clear Calc Not Reportable Estimated GFR > 60 (59 - ) Glucose 101 mg/dL mg/dL (65-110) POC Capillary Glucose Calcium 8.8 mg/dL mg/dL (8.4-10.2) Total Bilirubin 0.6 mg/dL mg/dL (0.2-1.3) AST 18 U/L U/L (14-36) ALT 22 U/L U/L (6-35) Alkaline Phosphatase 149 U/L H U/L (38-126) Total Protein 7.0 g/dL g/dL (6.3-8.2) Albumin 3.9 g/dL g/dL (3.5-5.1) RPR Pending 11/24/22 09:15 WBC RBC Hgb Hct MCV MCH MCHC RDW Plt Count MPV Immature Gran % (Auto) Neut % (Auto) Lymph % (Auto) [place] % (Auto) Eos % (Auto) Baso % (Auto) Lymph # (Auto) [place] # (Auto) Eos # (Auto) Baso # (Auto) Abs Immat Gran (auto) Absolute Neuts (auto) Absolute Nucleated RBC Nucleated RBC % Sodium Potassium Chloride Carbon Dioxide Anion Gap BUN Creatinine Estim
[2022-11-24 11:25] LABS: Glucose Point of Care 82 mg/dl (65-105)
--- NOTE | 2022-11-24 11:57 | WPDOBADMIT ---
Obstetrics - Admit Note Admission Note: record reviewed. No pertinent additions to the history and/or any subsequent changes in the physical findings that are not consistent with the expected course of the were found. Additions to the history and/or subsequent changes in the physical findings follow. The patient is here in Labor. She was 4cm on arrival. She was now 8cm with a bulging bag of water. Artificial rupture of membranes with clear fluid noted. Comfortable with epidural. Accu-Cheks normal.
[2022-11-24] MEDS: OXYTOCIN 30 UNITS/NS 500 ML 30 UNITS/500 ML BAG 999 UNITS IV CONT (12:28)
--- NOTE | 2022-11-24 12:35 | PM.OBPRVD ---
OB - Delivery Note Procedure Delivery date: 11/24/22 Procedure: Events: Diabetes Mellitus Induction method: None Delivery augmentation: Rupture of Membranes Delivery monitor: External FHT and External Uterine Route of delivery: Episiotomy description: None Laceration Description: None Specimen: Yes (placenta) Quantitative Blood Loss (ml): 100 Anesthesia type: Epidural Disposition: Floor Baby Date of : 11/24/22 Weeks of gestation at delivery: 39 gender: Female Weight (pounds): 8 Weight (ounces): 8 presentation: vertex position: Right Occiput Anterior Placenta delivery description: Spontaneous Cord Vessel Description: Delayed Cord Clamping and Around Body score one minute: 8 score five minutes: 9
--- NOTE | 2022-11-24 12:36 | PM.OBDSVD ---
DS: Admitting Diagnosis Discharge Date 11/26/22 Admitting Diagnosis IUP 39 wks in active labor NIDDM DS: Discharge Diagnosis Discharge Diagnosis (1) (normal spontaneous vaginal delivery): Code(s): O80 - Encounter for full-term uncomplicated delivery Status: Acute (2) Type 2 DM mild nonproliferative retinopathy, macular edema, uncontrol: Status: Acute OB - DS: Summary OB Procedures : NST and Ultrasound OB Procedures Intrapartum: Spontaneous Vag Delivery OB Procedures: : None Peripartum Data Delivery Method: Natural Vaginal Laceration Description: None complications: none Status at Discharge Functional status at discharge: independent ambulation Overall status at discharge: patient is progressing back to baseline Time Spent with Patient Time attestation: Total time spent providing and/or coordinating discharge services: DS: Data Data Completed and Pending Labs on day of discharge: Labs from last 24 hours 11/24/22 11/24/22 11/24/22 11:20 09:15 09:09 WBC RBC Hgb Hct MCV MCH MCHC RDW Plt Count MPV Immature Gran % (Auto) Neut % (Auto) Lymph % (Auto) [place] % (Auto) Eos % (Auto) Baso % (Auto) Lymph # (Auto) [place] # (Auto) Eos # (Auto) Baso # (Auto) Abs Immat Gran (auto) Absolute Neuts (auto) Absolute Nucleated RBC Nucleated RBC % Sodium 137 Potassium 3.5 Chloride 107 Carbon Dioxide 18 L Anion Gap 12 BUN 7 Creatinine 0.40 L Estim Creat Clear Calc Not Reportable Estimated GFR > 60 Glucose 101 POC Capillary Glucose 82 100 Calcium 8.8 Total Bilirubin 0.6 AST 18 ALT 22 Alkaline Phosphatase 149 H Total Protein 7.0 Albumin 3.9 RPR Blood Type Antibody Screen 11/24/22 11/24/22 11/24/22 09:09 09:09 09:09 WBC 8.7 RBC 4.81 Hgb 13.6 Hct 40.8 MCV 84.8 MCH 28.3 MCHC 33.3 RDW 15.9 H Plt Count 302 MPV 10.5 H Immature Gran % (Auto) 0.3 Neut % (Auto) 68.5 Lymph % (Auto) 23.3 [place] % (Auto) 7.5 Eos % (Auto) 0.2 Baso % (Auto) 0.2 Lymph # (Auto) 2.02 [place] # (Auto) 0.7 H Eos # (Auto) 0.0 Baso # (Auto) 0.0 Abs Immat Gran (auto) 0.03 Absolute Neuts (auto) 5.9 Absolute Nucleated RBC 0.0 Nucleated RBC % 0.0 Sodium Potassium Chloride Carbon Dioxide Anion Gap BUN Creatinine Estim Creat Clear Calc Estimated GFR Glucose POC Capillary Glucose Calcium Total Bilirubin AST ALT Alkaline Phosphatase Total Protein Albumin RPR Pending Blood Type A Positive Antibody Screen Negative Discharge Plan Discharge Attending physician on discharge: Estelita Robin Discharging Clinician: Estelita Robin Anticipated Discharge Date/Time: 11/26/22 12:38 Patient Disposition: Home, Self-Care Activity: may shower and pelvic rest Diet: diabetic Patient Instructions: Antibiotic Form Stand Alone Forms: General Discharge Information Follow-up/Referrals: Estelita Robin MD [Physician] - 6 Weeks Discharge Medications: Continued prenat.vits,yashira,mjs-havw-ivxbx Tablet 1 tablet PO DAILY cholecalciferol (vitamin D3) 1,250 mcg (50,000 unit) Tablet 1,250 mcg PO WEEKLY Discontinued aspirin 81 mg DAILY Humulin N NPH U-100 Insulin 100 unit/mL Suspension 30 unit SUBCUT HS amoxicillin 875 mg tablet 875 mg PO Q12H Qty: 20 0RF No Action (DME) insulin syringe-needle U-100 0.3 mL 31 gauge x 5/16 syringe MISCELLANEOUS Rx Instructions: 6 units at bedtime Date of admission: 11/24/22 08:54 Primary Care Provider: Tiffanie Harrison Admitting Provider: Estelita Robin Attending physician on admission: Estelita Robin Condition: Stable
[2022-11-24] MEDS: OXYTOCIN 30 UNITS/NS 500 ML 30 UNITS/500 ML BAG 125 UNITS IV CONT (13:00)
[2022-11-24 13:35] LABS: Glucose Point of Care 76 mg/dl (65-105)
[2022-11-24] MEDS: IBUPROFEN 600 MG TABLET PO ×2 (15:23→23:01)
--- NOTE | 2022-11-24 15:30 | OBPPTRN ---
Patient transferred to post room #278 via wheelchair. Support person present. Oriented to unit, room, information board, rooming in, admission packet and security measures. Patient verbalizes understanding. with patient.
[2022-11-24 18:19] LABS: Glucose Point of Care 80 mg/dl (65-105)
[2022-11-24 20:30] LABS: Glucose Point of Care 138 mg/dl (65-105)
[2022-11-25 05:43] LABS: Hematocrit 34.8 % (37.0-47.0); Hemoglobin 11.4 g/dL (12.0-15.0)
[2022-11-25] MEDS: IBUPROFEN 600 MG TABLET PO ×3 (06:58→22:22)
[2022-11-25] MEDS: DOCUSATE SODIUM 100 MG CAPSULE PO (06:59)
[2022-11-25] MEDS: MULTIVIT/MIN/PREN/FOL AC/IRON TABLET 1 TAB PO (06:59)
[2022-11-25 07:19] LABS: Rapid Plasma Reagin Non-Reactive (NonReactive)
[2022-11-25 07:50] VITALS: BP 120/60; PULSE 61; RESP 18; TEMP 36.7; O2SAT 97
--- NOTE | 2022-11-25 08:34 | PC.NURSE ---
On 11/25/22, the student, Yessy Dumont, provided care and completed [employer] documentation on this patient. I have reviewed the student's documentation and agree with the findings.
[2022-11-25 08:44] LABS: Glucose Point of Care 85 mg/dl (65-105)
--- NOTE | 2022-11-25 09:57 | WPDANLDPN2 ---
Anes-Prog Note L&D Date/Time: 11/25/22 09:57 Neuro status: Neuro function grossly intact. Cardiovascular status: normal Respiratory status: normal Airway patency: baseline Mental status: baseline Post-Op hydration status: normal Vital Signs: Last Vital Signs Temp 36.7 C 11/25/22 07:50 Pulse 61 11/25/22 07:50 Resp 18 11/25/22 07:50 BP 120/60 11/25/22 07:50 Pulse Ox 97 11/25/22 07:50 O2 Del Method Room Air 11/25/22 07:15 Pain score (VAS): 2 I/O: Intake & Output 11/24/22 11/25/22 11/25/22 23:59 07:59 15:59 Intake Total 240 Balance 240 Post-procedural complaints: none Patient feedback: Patient satisfied with anesthetic care.
--- NOTE | 2022-11-25 12:31 | PM.OBPNVD ---
OB - PN: Subj Subjective Date/time seen: 11/25/22 12:31 Patient comments: no complaints and pain well controlled baby status: nursing well [place] feeding status: exclusively breast feeding OB - PN: Obj Data Labs 11/25/22 04:44 11/24/22 09:09 Labs: Laboratory Results - last 24 hr 11/24/22 11/24/22 11/24/22 09:09 13:31 18:12 Hgb Hct POC Capillary Glucose 76 80 RPR Non-reactive 11/24/22 11/25/22 11/25/22 20:23 04:44 08:40 Hgb 11.4 L Hct 34.8 L POC Capillary Glucose 138 H 85 RPR OB - PN A/P Plan day: 1 Plan: routine care Time Spent With Patient Time: Total time spent is greater than 50% in coordination of care (as documented) at patient's floor/unit and/or counseling patient: Review of Systems Review of Systems: All systems reviewed & are unremarkable except as noted in HPI and below Exam Narrative: Alert and oriented. Mood is pleasant and cooperative. Urinating without difficulty. Denies passing any large clots. Perineum with minimal edema. Fundus firm and below umbilicus. Const: General: cooperative, healthy appearing, no acute distress and alert Orientation/consciousness: patient oriented x3 Limitations: no limitations Resp: Effort & Inspection: normal respiratory effort Auscultation: clear to auscultation bilaterally Cardio: Rate: regular rate GI: Inspection: normal to inspection Neuro: General: patient oriented x3 Extrem: General: normal to inspection and edema (2+ to BLE) Psych: Appearance: grossly normal Mental Status: mental status grossly normal Affect: normal affect Thought process: Normal thought process present
[2022-11-25 12:36] VITALS: BP 119/72; PULSE 69; RESP 16; TEMP 36.6; O2SAT 96
[2022-11-25 12:40] LABS: Glucose Point of Care 100 mg/dl (65-105)
--- NOTE | 2022-11-25 15:24 | PC.NURSE ---
[id number] Introductions were made, then consulted with patient to assess needs related to after a request. Mother led the conversation with her?plans to feed?her and the?experience so far. Mother works well with her infant with encouragement and education. Encouraged understanding of the benefits of skin to skin (demonstrating unwrapping and placing upright on her chest), stimulating with massage touch, changing positions to encourage wakefulness, responsive feeding, feeding about every 2-3 hours, milk production, building/maintaining a milk supply, duration of feeding, signs of adequate intake/output and how to record on the feeding sheet. Reviewed positioning and ear, shoulder, hip alignment, supporting the breast to facilitate a deep latch, asymmetrical latch (off-center), leading with the chin with a big, open, wide gape and body close to mother. latched optimally to the left breast in football position. After attempting to latch to the left with cross cradle positioning the nipple was slightly misshaped. Education given to mother of how to visualize suck/swallow ratios and listen for drinking at the breast. Gentle breast compression improved swallowing, which was rare. Mother states infant had breastfed at 1330 and had more swallows at that time. was able to maintain latch without discomfort to mother. Nipple care reviewed with optimal latch and good positioning. Reviewed good handwashing when or touching the breast/nipples to prevent infection. Mother voiced understanding of skin to skin, stimulating with massage touch, responsive feedings, hand expressed colostrum, talking to to encourage if it has been 2-2.5 hours since the start of the last , to call if does not latch, or if there is discomfort with . Resources provided for inpatient with feeding sheet and name written on the white board. Parents voiced understanding of information, demonstrated learning and will call if there is a request for assistance. Reported to the primary RN.
[2022-11-25 17:18] LABS: Glucose Point of Care 88 mg/dl (65-105)
[2022-11-25 19:26] VITALS: BP 113/66; PULSE 66; RESP 16; TEMP 36.1
[2022-11-26] MEDS: IBUPROFEN 600 MG TABLET PO (05:06)
[2022-11-26 07:45] VITALS: BP 110/66; PULSE 63; RESP 18; TEMP 36.4; O2SAT 99
--- NOTE | 2022-11-26 07:49 | PM.OBPNVD ---
OB - PN: Subj Subjective Date/time seen: 11/26/22 07:49 Patient comments: no complaints and pain well controlled baby status: doing well OB - PN: Obj Data Labs 11/25/22 04:44 11/24/22 09:09 Labs: Laboratory Results - last 24 hr 11/25/22 11/25/22 11/25/22 08:40 12:37 17:13 POC Capillary Glucose 85 100 88 OB - PN A/P Plan day: 2 Plan: routine care and discharge home Time Spent With Patient Time: Total time spent is greater than 50% in coordination of care (as documented) at patient's floor/unit and/or counseling patient: Exam : Bimanual exam- vagina & uterus: other (Uterus firm, nt @U)
[2022-11-26 08:08] LABS: Glucose Point of Care 87 mg/dl (65-105)
[2022-11-26] MEDS: DOCUSATE SODIUM 100 MG CAPSULE PO (09:01)
[2022-11-26 11:07] LABS: Glucose Point of Care 132 mg/dl (65-105)
--- NOTE | 2022-11-26 14:19 | PC.NURSE ---
0830 - Mother led the conversation with her experience and plan to feed her so far and her ability to independently latch infant optimally without discomfort. Reminded parents to use good handwashing technique to prevent infection. Mother is feeding appropriately for growth of infant and understands stimulating to eat if needed. has had appropriate feedings in the last 24 hours meets the outcomes for weight, output and jaundice at this time. Mother states she is confident to continue effectively breastfeed her infant at home, when to call for assistance and denies any additional assistance or education at this time. Reinforced understanding of milk production, transition of milk, signs of adequate intake, transition of stool, prevention/relief of engorgement, responsive watching for feeding cues, community resources, and when to call a provider using the resource of the mom and baby guide. Mother voiced understanding of the education shared. Reported to the primary RN.
[2022-11-27 09:34] VITALS: BP 125/78; PULSE 81; RESP 18; TEMP 37.4; O2SAT 97
== END 2022-11-26 11:45 | disposition home or self-care (01) | DRG 807 ==
LOC: ANHLDR 12:38 → ANHOB2 15:34
PROVIDERS: Admitting Provider Obstetrics & Gynecology Gynecology; PCP Family Medicine; Visit Provider Obstetrics & Gynecology Gynecology
DX: O24.429 Gestational diabetes mellitus in childbirth, unspecified control (principal); Z37.0 Single live birth; O69.82X0 Labor and delivery complicated by other cord entanglement, without compression, not applicable or unspecified; O12.04 Gestational edema, complicating childbirth; Z3A.39 39 weeks gestation of pregnancy
CPT/HCPCS: 36415; 80053; 82948; 85014; 85018; 85025; 86592; 86850; 86900; 86901; 88307; A9270; J2590; J2795; J3010; J7120

== ENCOUNTER 2024-05-02 08:08 | Outpatient (CLI) | payer OTHER, SELFPAY ==
[2024-05-02 08:32] LABS: Hemoglobin 14.3 g/dL (12.0-15.0); Mean Corpuscular HGB Conc 33.3 g/dL (32-36); Mean Corpuscular Hemoglobin 28.8 pg (27.0-31.0); Mean Corpuscular Volume 86.5 fL (78.0-102.0); Platelet Count Result 314 K/mm3 (150-420); Red Blood Count 4.97 M/mm3 (4.20-5.40); Red Cell Distribution Width 12.8 % (11.6-14.4)
[2024-05-02 08:56] LABS: Hemoglobin A1C 5.6 % (<5.7)
[2024-05-02 09:42] LABS: Alanine Aminotransferase 21 U/L (14-59); Albumin Level 3.6 g/dL (3.4-5.0); Alkaline Phosphatase 83 U/L (46-116); Anion Gap 10 mmol/L (4-12); Aspartate Amino Transferase 13 U/L (15-37); Bilirubin,Total 0.6 mg/dL (0.00-1.00); Blood Urea Nitrogen 9 mg/dL (7-18); Calcium 8.4 mg/dL (8.5-10.1); Carbon Dioxide 27 mmol/L (21-32); Chloride 105 mmol/L (98-108); Cholesterol 209 mg/dL (0-200); Estimated Glomerular Filt Rate > 60; Glucose 97 mg/dL (70-99); HDL Direct 41 mg/dL (40-60); LDL Cholesterol Calculated 128 mg/dL (<130); Osmolality Calculated 292 mOsm/kg (285-295); Potassium 3.9 mmol/L (3.5-5.1); Sodium 142 mmol/L (136-145); Total Protein 6.9 g/dL (6.4-8.2); Triglycerides 200 mg/dL (0-150); Vitamin B12 336 pg/mL (193-986)
[2024-05-02 09:44] LABS: Thyroid Stimulating Hormone Reflex 4.54 u/IU/mL (0.36-3.74)
[2024-05-02 09:45] LABS: Free T4 Free Thyroxine Reflex 0.77 ng/dL (0.76-1.46)
[2024-05-03 16:19] LABS: Vitamin D 25 Hydroxy 21 ng/mL (30-100)
== END 2024-05-02 08:09 | disposition home or self-care (01) ==
PROVIDERS: PCP Family Medicine; Visit Provider Nurse Practitioner
DX: Z01.419 Encounter for gynecological examination (general) (routine) without abnormal findings (principal); E55.9 Vitamin D deficiency, unspecified
CPT/HCPCS: 36415; 80053; 80061; 82306; 82607; 83036; 84439; 84443; 84481; 85027

== ENCOUNTER 2024-09-17 11:40 | Emergency (ER) | payer OTHER, SELFPAY ==
[2024-09-17 12:31] VITALS: BP 135/90; PULSE 70; RESP 16; TEMP 36.8; O2SAT 100
--- NOTE | 2024-09-17 13:18 | ED.GENADULT ---
HPI - General Adult General Chief complaint: Urogenital-Female Stated complaint: UTI SYMPTOMS Time Seen by Provider: 09/17/24 13:18 Source: patient Mode of arrival: ambulatory Limitations: no limitations History of Present Illness HPI narrative: 39-year-old female presents to the [facility] with complaints of urinary symptoms x2 days. Patient complains of urgency, frequency and pain with urination. Related Data Home Medications ?Medication ?Instructions ?Recorded ?Confirmed ?Last Taken ?Type prenat.vits,yashira,npf-cqml-obmds 1 tablet PO DAILY 05/25/22 02/24/23 11/23/22 21:00 History Allergies Allergy/AdvReac Type Severity Reaction Status Date / Time azithromycin Allergy Unknown hives Verified 09/17/24 13:14 cephalexin Allergy Unknown Skin Verified 09/17/24 13:14 Reaction levofloxacin Allergy Unknown arm turned Verified 09/17/24 13:14 red Review of Systems Review of Systems: CONSTITUTIONAL: Denies fever, chills, or sweats. EYES: Denies visual changes, redness, or discharge. ENT: Denies rhinorrhea, congestion, sore throat, or otalgia. CARDIOVASCULAR: Denies chest pain, palpitations, or edema. RESPIRATORY: Denies cough or dyspnea. GASTROINTESTINAL: Denies abdominal pain, nausea, vomiting, or diarrhea. GENITOURINARY: positive dysuria denies hematuria. SKIN: Denies rash or itching. MUSCULOSKELETAL: Denies back pain, joint pain, or myalgia. NEUROLOGIC: Denies headache, numbness, or weakness. PSYCHIATRIC: Denies anxiety or depression. [facility] Past Medical History Medical History (Updated 09/17/24 @ 13:34 by URMILA Jurado) GDM (gestational diabetes mellitus) Vomiting affecting Gastroenteritis Community acquired pneumonia Family History Family History Father Diabetes mellitus Myocardial infarction Hypertension Mother Diabetes mellitus Hypertension Colon cancer Sibling Brain cancer Social History Social History Social History: Caffeine- <200mg daily Smoking status: Never smoker Alcohol intake: former Substance use: never Lack of Transportation: No Lack of Food: Never True Current Housing: I Have Housing Concerned About Future Housing: No Difficulty Paying Gas/Electric Bills: No Difficulty Paying for Meds: No Currently Unemployed: No Education: Bachelor's Degree Difficulty w/ Childcare or Family Care: No Spiritual care concerns: No Exam Narrative: GENERAL: Well-appearing, well-nourished, and in no acute distress. HEAD: Normocephalic, atraumatic. EYES: PERRLA and EOMI. ENT: Nares clear, no rhinorrhea or epistaxis. Mucous membranes moist. NECK: Supple. No lymphadenopathy CHEST: Clear to auscultation. No respiratory distress. HEART: Regular rate and rhythm. No murmur heard. Normal peripheral pulses. ABDOMEN: Soft, nontender, nondistended, normal active bowel sounds. no CVA tenderness on percussion EXTREMITIES: Normal range of motion. No edema. SKIN: Warm, dry, no rash. NEURO: No focal deficits. Alert and oriented x3. Course Course Level of Care: Express Care Visit Vital Signs Vital signs: Vital Signs Temperature 36.8 C 09/17/24 12:31 Pulse Rate 70 09/17/24 12:31 Respiratory Rate 16 09/17/24 12:31 Blood Pressure 135/90 09/17/24 12:31 Pulse Oximetry 100 09/17/24 12:31 Temperature 36.8 C 09/17/24 12:31 Pulse Rate 70 09/17/24 12:31 Respiratory Rate 16 09/17/24 12:31 Blood Pressure 135/90 09/17/24 12:31 Pulse Oximetry 100 09/17/24 12:31 Vital signs reviewed Medical Decision Making MDM Narrative Medical decision making narrative: plan of care for patient is discharge home with oral antibiotics for possible UTI. We will send the urine off to lab for culture and if the culture shows that she needs a different type of antibiotic we will call her and 1 at that time. Differential Diagnosis Differential Diagnosis: differential diagnosis Uncomplicated lower UTI, uncomplicated UTI, pyelonephritis Vital Signs Vital Signs: Vital Signs Temperature 36.8 C 09/17/24 12:31 Pulse Rate 70 09/17/24 12:31 Respiratory Rate 16 09/17/24 12:31 Blood Pressure 135/90 09/17/24 12:31 Pulse Oximetry 100 09/17/24 12:31 Temperature 36.8 C 09/17/24 12:31 Pulse Rate 70 09/17/24 12:31 Respiratory Rate 16 09/17/24 12:31 Blood Pressure 135/90 09/17/24 12:31 Pulse Oximetry 100 09/17/24 12:31 Lab Data Labs: Lab Results 09/17/24 Range/Units 13:27 POC Urine Color Yellow POC Urine Clarity Cloudy POC Urine pH 6.0 POC Ur Specif [place] 1.020 POC Urine Protein Negative (Negative) POC Ur Glucose (UA) Negative (Negative) POC Urine Ketones Negative (Negative) POC Urine Blood 2+ (Negative) POC Urine Nitrite Positive (Negative) POC Urine Bilirubin Negative (Negative) POC Urine Urobilinogen 0.2 POC U Leukocyte Esteras 2+ (Negative) Critical Care Time Critical Care Time Critical Care Time: No Discharge Plan Discharge Clinical Impression: Urinary tract infection Qualifiers: Urinary tract infection type: acute cystitis Hematuria presence: without hematuria Qualified Code(s): N30.00 - Acute cystitis without hematuria Patient Disposition: Home, Self-Care Condition: Stable Instructions: Antibiotic Form, Urinary Tract Infection in Women (ED) Additional Instructions: We will send a urine culture off to the lab; if the culture identifies an organism that the prescribed antibiotic will not treat, you will receive a phone call from an urgent care staff member and an appropriate antibiotic will be prescribed. -Your symptoms should begin to improve within a day of starting antibiotics. But you should finish all the antibiotic pills you get. Otherwise your infection might come back. -Also recommend: drink more fluid. It might help flush out germs, and it does no harm -Tylenol/ibuprofen prn for pain or fever -Follow-up with your primary care provider for urine recheck or seek ER visit if condition worsens with high fever, nausea, vomiting and severe back pain. Patient Language: Vietnamese Prescriptions: New nitrofurantoin monohyd/m-cryst [Macrobid] 100 mg capsule 100 mg PO Q12H 5 Days Qty: 10 0RF Rx Instructions: must administer with a meal/food No Action prenat.vits,yashira,oci-[id number] Tablet 1 tablet PO DAILY cholecalciferol (vitamin D3) 1,250 mcg (50,000 unit) capsule 1,250 mcg PO WEEKLY Qty: 14 2RF Follow-up/Referrals: Tiffanie Harrison MD [Primary Care Provider] - Time of Disposition: 13:34
[2024-09-17 13:30] LABS: EDUAAPPEAR Cloudy; EDUABILI Negative (Negative); EDUABLOOD 2+ (Negative); EDUACOLOR1 Yellow; EDUAGLUCOSE Negative (Negative); EDUAKETONE Negative (Negative); EDUALEUKO 2+ (Negative); EDUANITRATE Positive (Negative); EDUAPROTEIN Negative (Negative); EDUAUROBILI 0.2
[2024-09-17 13:38] LABS: BEDSIDEPREGUCG Negative (Negative)
== END 2024-09-17 13:46 | disposition home or self-care (01) ==
PROVIDERS: Emergency Provider Nurse Practitioner Family; PCP Family Medicine
DX: N30.00 Acute cystitis without hematuria (principal); B96.20 Unspecified Escherichia coli [E. coli] as the cause of diseases classified elsewhere
CPT/HCPCS: 81003; 81025; 87077; 87086; 87186; 99213; G0463